=== PATIENT | male | born 1970 | race Asian ===

== ENCOUNTER 2024-01-25 19:46 | Emergency (ER) | payer OTHER ==
[2024-01-25 20:28] VITALS: BP 155/78; PULSE 72; RESP 18; TEMP 98.8; BMI 28.0
[2024-01-25] MEDS ORDERED: LIDOCAINE 4% PATCH TP ONE (20:41)
[2024-01-25] MEDS: LIDOCAINE 4% PATCH TP ONE (20:57)
[2024-01-25] MEDS ORDERED: ACETAMINOPHEN 325 MG TABLET (FP) ONE (21:00)
[2024-01-25] MEDS: ACETAMINOPHEN 500 MG TABLET (FP) PO ONE (21:14)
[2024-01-25] MEDS: LIDOCAINE PATCH REMOVAL MC SCH (22:05)
== END 2024-01-26 01:02 | disposition home or self-care (01) ==
LOC: JER 19:46
DX: S20.212A Contusion of left front wall of thorax, initial encounter (principal); Y04.8XXA Assault by other bodily force, initial encounter
CPT/HCPCS: 71045-TC-FY; 71101-TC-LT-FY; 99284-25

== ENCOUNTER 2024-02-27 14:34 | Inpatient (IN) | payer OTHER ==
[2024-02-27] MEDS ORDERED: DEXTROSE 50%-WATER 25 GM/50 ML DISP.SYRIN ONE (15:17)
[2024-02-27] MEDS: DEXTROSE 50%-WATER 25 GM/50 ML DISP.SYRIN IVPUSH ONE (15:25)
[2024-02-27] MEDS: SODIUM CHLORIDE 1,000 ML IV SCH (15:27)
[2024-02-27 15:46] LABS: INR 0.97 (0.83-1.09)
[2024-02-27 15:48] LABS: ACTIVATED PTT 33.4 SECONDS (25.2-36.5)
[2024-02-27 16:04] LABS: CHLORIDE 95 mmol/L (98-107); POTASSIUM 3.7 mmol/L (3.5-5.1); SODIUM 131 mmol/L (136-145)
[2024-02-27 16:05] LABS: CALCIUM 9.4 mg/dL (8.5-10.1)
[2024-02-27 16:06] LABS: ALBUMIN 3.7 g/dl (3.4-5.0); ANION GAP 8 mmol/L (4-13); CO2 28 mmol/L (21-32)
[2024-02-27 16:07] LABS: BLOOD UREA NITROGEN 14.2 mg/dL (7-18)
[2024-02-27 16:09] LABS: CREATININE 0.7 mg/dL (0.55-1.3); SGOT/AST 42 U/L (15-37); SGPT/ALT 69 U/L (13-61)
[2024-02-27 16:10] LABS: CHOLESTEROL 84 mg/dL (50-200)
[2024-02-27 16:12] LABS: BILIRUBIN,TOTAL 0.3 mg/dL (0.2-1); LDL CHOLESTEROL (ONLY SJRH) 40 mg/dL (5-100); TOT PROT 7.2 g/dl (6.4-8.2)
[2024-02-27 16:13] LABS: ALK PHOS 63 U/L (45-117); HDL CHOLESTEROL 43 mg/dL (40-60)
[2024-02-27 16:51] LABS: PH,URINE 7.5 (5.0-8.0); URINE APPEARANCE CLEAR; URINE BILIRUBIN NEGATIVE (NEGATIVE); URINE COLOR YELLOW; URINE GLUCOSE (UA) 3+ (NEGATIVE); URINE KETONE NEGATIVE (NEGATIVE); URINE LEUK ESTERASE NEGATIVE (NEGATIVE); URINE NITRITE NEGATIVE (NEGATIVE); URINE PROTEIN NEGATIVE (NEGATIVE); URINE UROBILINOGEN 0.2 mg/dL (0.2-1.0)
[2024-02-27 16:53] LABS: GLUCOSE,RANDOM 48 mg/dL (74-106)
[2024-02-27] MEDS: DEXTROSE 50%-WATER - 25 GM/50 ML VIAL IVPUSH ONE (17:17)
[2024-02-27 22:03] LABS: EOS % 4.5 % (0-4.5); HEMATOCRIT 37.3 % (35.4-49); HEMOGLOBIN 12.8 GM/dL (11.7-16.9); LYMPH % 30.2 % (8-40); MCH 30.4 pg (25.7-33.7); MCHC 34.3 g/dl (32.0-35.9); MEAN CELL VOLUME 88.5 fl (80-96); MEAN PLT VOLUME 6.4 fl (7.5-11.1); MONO % 9.1 % (3.8-10.2); NEUT % 55.2 % (42.8-82.8); PLATELET COUNT 242 10^3/uL (134-434); RBC 4.21 M/mm3 (4.00-5.60); RDW 13.9 % (11.9-15.9); WHITE BLOOD COUNT 5.7 K/mm3 (4.0-10.0)
[2024-02-28] MEDS: metFORMIN HCL 500 MG TABLET (FP) PO SCH (06:13)
[2024-02-28] MEDS: INSULIN (LEVEMIR) 100 UNITS/ML UNITS SQ SCH (06:14)
[2024-02-28] MEDS: INSULIN (NOVOLOG) ASPART 100 UNITS/ML 10ML VIAL SQ SCH (06:44)
[2024-02-28 07:18] LABS: BASO % 1.4 % (0-2.0); EOS % 5.8 % (0-4.5); HEMATOCRIT 38.5 % (35.4-49); HEMOGLOBIN 13.1 GM/dL (11.7-16.9); LYMPH % 26.8 % (8-40); MCH 30.3 pg (25.7-33.7); MEAN CELL VOLUME 89.2 fl (80-96); MEAN PLT VOLUME 6.8 fl (7.5-11.1); PLATELET COUNT 254 10^3/uL (134-434); RBC 4.32 M/mm3 (4.00-5.60); RDW 14.1 % (11.9-15.9); WHITE BLOOD COUNT 5.1 K/mm3 (4.0-10.0)
[2024-02-28 07:45] LABS: BLOOD UREA NITROGEN 13.8 mg/dL (7-18); CALCIUM 9.3 mg/dL (8.5-10.1)
[2024-02-28 07:46] LABS: ALBUMIN 3.5 g/dl (3.4-5.0)
[2024-02-28 07:48] LABS: CREATININE 0.7 mg/dL (0.55-1.3)
[2024-02-28 07:50] LABS: BILIRUBIN,TOTAL 0.4 mg/dL (0.2-1); TOT PROT 6.5 g/dl (6.4-8.2)
[2024-02-28] MEDS: CHOLECALCIFEROL (VIT D3) 1,000 UNIT (25 MCG) TABLET PO SCH (09:11)
[2024-02-28] MEDS: OLANZapine 10 MG TABLET PO SCH (09:11)
[2024-02-28] MEDS: CARVEDILOL 25 MG TABLET (FP) PO SCH (09:11)
[2024-02-28] MEDS: TAMSULOSIN HCL 0.4 MG CAP PO SCH (09:11)
[2024-02-28] MEDS: CLOPIDOGREL BISULFATE 75 MG TABLET (FP) PO SCH (09:11)
[2024-02-28] MEDS: ASPIRIN COATED 81 MG TABLET.EC PO SCH (09:11)
[2024-02-28] MEDS: OXcarbazepine 150 MG TABLET (UD) PO SCH (10:25)
[2024-02-28] MEDS: CHLORTHALIDONE 25 MG TABLET PO SCH (10:25)
[2024-02-28] MEDS ORDERED: INSULIN ASPART SLIDING SCALE (NOVOLOG) 1 VIAL SQ ONE (16:08)
[2024-02-28] MEDS: ROSUVASTATIN CA 20 MG TABLET PO SCH (21:46)
[2024-02-28] MEDS: SENNOSIDES 8.6MG TABLET (FP) PO SCH (21:47)
[2024-02-29 15:37] VITALS: BMI 24.4
[2024-02-29] MEDS ORDERED: INSULIN ASPART SLIDING SCALE (NOVOLOG) 1 VIAL SQ ONE (16:29)
[2024-02-29 18:17] VITALS: RESP 18
[2024-02-29] MEDS: OLANZapine 5 MG TABLET PO SCH (21:28)
[2024-02-29] MEDS: INSULIN (LEVEMIR) 100 UNITS/ML UNITS SQ SCH (21:37)
[2024-02-29 22:21] VITALS: BP 161/86; PULSE 76; TEMP 97.7
== END 2024-02-29 23:15 | DRG 951 ==
LOC: JER 14:34 → JERBED 20:21 → J7W 23:13 → OBSVTOIN 02-28 14:09 → J7W 02-28 18:55
PROVIDERS: ADMIT Internal Medicine; ATTEND Internal Medicine
DX: R46.89 Other symptoms and signs involving appearance and behavior (principal); I10 Essential (primary) hypertension; E78.5 Hyperlipidemia, unspecified; E11.65 Type 2 diabetes mellitus with hyperglycemia; E11.40 Type 2 diabetes mellitus with diabetic neuropathy, unspecified; N40.0 Benign prostatic hyperplasia without lower urinary tract symptoms
CPT/HCPCS: 36415; 70450-TC; 80053; 80061; 81003; 82550; 82962; 83036; 84443; 84484; 85025; 85610; 85730; 86850; 86900; 86901; 93005; 93010; 97116-GP; 97161-GP; 99285-25; G0378